=== PATIENT | male | born 1980 | race African-American/Black ===

== ENCOUNTER 2023-01-30 08:34 | Emergency (ER) | payer BC, SELFPAY ==
[2023-01-30] MEDS ORDERED: Lactated Ringer's 1,000 ML ONE (09:00)
[2023-01-30] MEDS ORDERED: diphenhydrAMINE 50 MG/ML VIAL ONE (09:00)
[2023-01-30] MEDS ORDERED: Amoxicillin/Potassium Clav 875 MG TAB ONE (09:00)
[2023-01-30] MEDS ORDERED: Prochlorperazine 10 MG/2 ML VIAL ONE (09:00)
[2023-01-30] MEDS ORDERED: Ketorolac Tromethamine 30 MG/ML VIAL ONE (09:00)
[2023-01-30 09:43] LABS: ALT (SGPT) 13 U/L (8-55); AST (SGOT) 15 U/L (5-34); Albumin 4.1 g/dL (3.5-5.0); Alkaline Phosphatase 57 U/L (40-110); Anion Gap 14 mmol/L (10-20); BUN (Urea Nitrogen) 12 mg/dL (8.9-20.6); Bilirubin, Total 0.6 mg/dL (0.2-1.2); Calc. Creatinine Clearance 0 mL/min (70-130); Carbon Dioxide 24 mmol/L (22-29); Chloride 102 mmol/L (98-107); Estimated GFR 109; Globulin 3.2 g/dL (2.4-3.5); Glucose 95 mg/dL (70-105); Potassium 4.2 mmol/L (3.5-5.1); Protein, Total 7.3 g/dL (6.0-8.3); Sodium 136 mmol/L (136-145)
[2023-01-30 09:57] LABS: Band 1 % (5-11); Eosinophils 1 % (0-10); Hematocrit 38.8 % (42.0-52.0); Hemoglobin 12.7 g/dL (14.0-18.0); Hypochromia SLIGHT = 6-15 cells (100X) (0-5/hpf); Lymphocytes 23 % (21-51); MDiff Complete? YES; Mean Corpuscular HGB CONC 32.7 g/dL (32.0-36.0); Mean Corpuscular Hemoglobin 28.2 pg (27.0-31.0); Monocytes 8 % (0-10); Neutrophil 64 % (42-75); Platelet Adequacy Comment Appears Increased; Platelet Count 541 10x3/uL (130-400); RBC Distribution Width 14.9 % (11.5-14.5); Reactive Lymphocytes 3 % (0-10); Red Blood Cell (RBC) Count 4.51 mill/uL (4.70-6.10); White Blood Cell (WBC) Count 8.7 10x3/uL (4.8-10.8)
== END 2023-01-30 10:35 | disposition home or self-care (01) ==
LOC: MADERS 08:34
DX: J01.00 Acute maxillary sinusitis, unspecified (principal); R29.702 NIHSS score 2; I10 Essential (primary) hypertension; Z79.899 Other long term (current) drug therapy
CPT/HCPCS: 80053; 85025; 86140; 94760; 96361; 96374; 96375; J0780; J1200; J1885; J7120